=== PATIENT | male | born 1950 | race Caucasian/White ===

== ENCOUNTER 2019-10-04 12:14 | Outpatient (CLI) | payer OTHER ==
--- NOTE | 2019-10-04 18:09 | CT ---
CT CORONARY ARTERY CALCIUM SCORE 10/04/19 HISTORY: Hyperlipidemia. FINDINGS: Coronary artery calcium scoring was performed using the [id number] protocol. Left main: 0 RCA: 0 LAD: 167 LCX: 56 Total: 223 The visualized lung chaudhry are unremarkable. No pleural or pericardial effusions are seen. There are degenerative changes in the spine. IMPRESSION: Total coronary artery calcium score is 223. Mild coronary artery disease is highly likely, significan t narrowings are possible. Definite, at least moderate atherosclerotic plaque. POS: JOSE ANTONIO
== END 2019-10-04 12:15 | disposition home or self-care (01) ==
LOC: BICCT 12:14
PROVIDERS: ATTEND Family Medicine
DX: E78.5 Hyperlipidemia, unspecified (principal); I25.10 Atherosclerotic heart disease of native coronary artery without angina pectoris
CPT/HCPCS: 75571

== ENCOUNTER 2023-09-14 07:51 | Outpatient (CLI) | payer MEDICARE, OTHER | END 2023-09-14 07:52 | disposition home or self-care (01) | LOC: SCSMRI 07:51 | PROVIDERS: ATTEND Family Medicine | DX: M25.551 Pain in right hip (principal); M87.851 Other osteonecrosis, right femur; M25.451 Effusion, right hip; M65.851 Other synovitis and tenosynovitis, right thigh; K40.90 Unilateral inguinal hernia, without obstruction or gangrene, not specified as recurrent; S73.191A Other sprain of right hip, initial encounter; M94.8X5 Other specified disorders of cartilage, thigh ==

== ENCOUNTER 2023-09-30 08:14 | Outpatient (CLI) | payer MEDICARE, OTHER ==
[2023-09-30 09:27] LABS: #Eosinphils 0.3 10x3/uL (0.0-0.5); #Monocytes 0.6 10x3/uL (0.0-1.1); #Neutrophils 3.1 10x3/uL (1.5-8.4); %Basophils 0.5 % (0.0-2.0); %Eosinophils 5.1 % (0.0-6.0); %Lymphocytes 27.9 % (18.0-47.0); %Monocytes 11.2 % (0.0-10.0); %Neutrophils 55.1 % (40.0-75.0); Hematocrit 39.8 % (38.8-50.0); Hemoglobin 13.6 g/dL (13.5-17.5); Mean Corpuscular HGB CONC 34.2 g/dL (32.0-36.0); Mean Corpuscular Hemoglobin 30.6 pg (27.0-33.0); Mean Corpuscular Volume 89.4 fl (81.2-95.1); Mean Platelet Volume 10.8 fl (7.4-10.4); Platelet Count 241 10x3/uL (150-450); RBC Distribution Width 11.6 % (11.5-14.5); Red Blood Cell (RBC) Count 4.45 10x6/uL (4.32-5.72); White Blood Cell (WBC) Count 5.7 10x3/uL (3.5-10.5)
[2023-09-30 09:34] LABS: INR-International Normal Ratio 1.1; Prothrombin Time 11.8 sec (9.5-12.1)
[2023-09-30 09:40] LABS: Anion Gap 12 mmol/L (10-20); BUN (Urea Nitrogen) 14 mg/dL (8.4-25.7); Calc. Creatinine Clearance 0 mL/min (70-130); Calcium 8.7 mg/dL (7.8-10.44); Carbon Dioxide 22 mmol/L (23-31); Chloride 109 mmol/L (98-107); Estimated GFR 68; Glucose 142 mg/dL (83-110); Potassium 4.2 mmol/L (3.5-5.1); Sodium 139 mmol/L (136-145)
== END 2023-09-30 08:15 | disposition home or self-care (01) ==
LOC: LABBT 08:14
PROVIDERS: ATTEND Orthopaedic Surgery
DX: Z01.818 Encounter for other preprocedural examination (principal); M16.11 Unilateral primary osteoarthritis, right hip
CPT/HCPCS: 80048; 85025; 85610; 87081; 93005; 93010

== ENCOUNTER 2023-10-04 09:58 | Observation (INO) | payer MEDICARE, OTHER ==
[2023-09-30 08:40] VITALS: BMI 31.6
[2023-10-04] MEDS ORDERED: Tranexamic Acid 1,000 MG/10 ML VIAL ONE (10:15)
[2023-10-04] MEDS ORDERED: Sodium Chloride 0.9% 100 ML ONE (10:15)
[2023-10-04] MEDS ORDERED: Vancomycin (BATCH) 1.5 GM/300 ML BAG ONE (10:16)
[2023-10-04] MEDS ORDERED: fentaNYL 50 mcg/mL 1 mL Vial ONE (10:42)
[2023-10-04] MEDS ORDERED: Midazolam HCl 2 mg/2 ml Vial ONE ×2 (10:42→12:10)
[2023-10-04] MEDS ORDERED: Bupivacaine PF 0.5% 30 ML VIAL ONE ×2 (10:42→12:13)
[2023-10-04] MEDS ORDERED: Bupivacaine HCl 0.5%/Epinephrine 1:200,000/PF 30 ml Vial ONE (12:00)
[2023-10-04] MEDS ORDERED: PROPOFOL 20 ML ONE (12:40)
[2023-10-04] MEDS ORDERED: fentaNYL PF 100 MCG/2 ML SYRINGE ONE (12:40)
[2023-10-04] MEDS ORDERED: Dexmedetomidine 200 MCG/2 ML VIAL ONE (12:45)
[2023-10-04] MEDS ORDERED: PHENYLEPHRINE-NS 100 MCG/ML 10 ML SYRINGE ONE (13:13)
[2023-10-04] MEDS ORDERED: Glycopyrrolate 0.2 MG/ML 5 ML SYRINGE ONE (13:14)
[2023-10-04] MEDS ORDERED: HYDROcodone/Acetaminophen 10/325 mg Tablet PO PRN (13:40)
[2023-10-04] MEDS ORDERED: diphenhydrAMINE 25 MG CAP PO PRN (13:40)
[2023-10-04] MEDS ORDERED: Zolpidem Tartrate 5 MG TAB PO PRN (13:40)
[2023-10-04] MEDS ORDERED: Promethazine HCl 25 MG/ML VIAL IM PRN (13:40)
[2023-10-04] MEDS ORDERED: Acetaminophen 325 MG TAB PO PRN (13:40)
[2023-10-04] MEDS ORDERED: fentaNYL 50 mcg/mL 1 mL Vial SLOW IVP PRN (13:40)
[2023-10-04] MEDS ORDERED: Ondansetron PF 4 MG/2 ML Vial IVP PRN (13:40)
[2023-10-04] MEDS: Ketorolac Tromethamine 30 MG (1 mL) VIAL IVP SCH (16:39)
[2023-10-04] MEDS: Sodium Chloride 0.9% 1,000 ML IV SCH (16:48)
[2023-10-04] MEDS: CEFAZOLIN 2 GM in Sodium Chloride 0.9% 100 ML IVPB SCH (21:11)
[2023-10-04] MEDS: Amlodipine 5 MG TAB PO SCH (21:12)
[2023-10-04] MEDS: Aspirin 81 mg Enteric Coated Tablet PO SCH (21:12)
[2023-10-04] MEDS: Fluticasone Propionate Nasal Spray 16 gm Bottle NASAL SCH (21:12)
[2023-10-04] MEDS: Azelastine 137 MCG/NASAL Spray 30 ML NS SCH (21:13)
[2023-10-05] MEDS: HYDROcodone/Acetaminophen 10/325 mg Tablet PO PRN (00:34)
[2023-10-05] MEDS: Ketorolac Tromethamine 30 MG (1 mL) VIAL IVP SCH (00:34)
[2023-10-05 03:58] LABS: Hematocrit 36.2 % (42.0-52.0); Hemoglobin 12.2 g/dL (14.0-18.0); Mean Corpuscular HGB CONC 33.7 g/dL (32.0-36.0); Mean Corpuscular Hemoglobin 30.6 pg (27.0-31.0); Mean Corpuscular Volume 90.7 fl (78.0-98.0); Mean Platelet Volume 10.6 fL (7.4-10.4); Platelet Count 205 10x3/uL (130-400); RBC Distribution Width 11.6 % (11.5-14.5); Red Blood Cell (RBC) Count 3.99 mill/uL (4.70-6.10); White Blood Cell (WBC) Count 10.3 10x3/uL (4.8-10.8)
[2023-10-05 08:28] VITALS: BP 100/62; TEMP 98.9
[2023-10-05] MEDS: Ferrous Gluconate 324 MG TAB PO SCH (09:14)
[2023-10-05] MEDS: Rosuvastatin 20 MG TAB PO SCH (09:14)
[2023-10-05] MEDS: Senokot S 8.6-50 MG TAB PO SCH (09:14)
[2023-10-05] MEDS: Losartan 25 MG TAB PO SCH (09:16)
[2023-10-05] MEDS: Multivitamin W/ Minerals 1 TAB PO SCH (09:16)
== END 2023-10-05 11:49 | disposition home or self-care (01) ==
LOC: SDC 09:58 → SJJU 13:40 → SDC 10-05 09:02 → SJJU 10-05 09:03
PROVIDERS: ADMIT Orthopaedic Surgery; ATTEND Orthopaedic Surgery
PROC: 0SR90JZ Replacement of Right Hip Joint with Synthetic Substitute, Open Approach (ICD-10-PCS; principal; 2023-10-05)
DX: M87.9 Osteonecrosis, unspecified (principal); M16.11 Unilateral primary osteoarthritis, right hip; Z90.89 Acquired absence of other organs; Z98.890 Other specified postprocedural states; Z79.899 Other long term (current) drug therapy
CPT/HCPCS: 27130; 73502; 85027; 97110; 97116 ×2; 97530; 97535; C1776; G0378; J3010; J3370; 36415; J0665; J1885; J2250; J2704; J3490